=== PATIENT | male | born 1945 | race Caucasian/White ===

== ENCOUNTER 2020-04-30 00:31 | Outpatient (CLI) | payer MEDICARE, OTHER, SELFPAY ==
--- NOTE | 2020-04-30 10:54 | DI.CTLCSR_ITS ---
EXAM: CT CHEST LUNG CANCER SCREEN CLINICAL HISTORY: CURRENT SMOKER,F17.210, SCREENING FOR LUNG CA,BASELINE TECHNIQUE: CT examination of the chest was performed utilizing low-dose lung cancer screening protoc . COMPARISON: No exams were available for comparison FINDINGS: Images obtained through the upper abdomen show unremarkable appearance of visualized portions of the liver and spleen. Visualized portions of kidneys, adrenals, pancreas are unremarkable. Gallbladder and bile ducts are CT normal. There is no mediastinal or hilar adenopathy. Mediastinal vascular structures appear intact by noncon trast criteria. Coronary artery calcifications noted. Tracheobronchial tree appears intact. No pleural effusion or pleural-based mass. The lungs are clear with no significant intrapulmonary nodule identified. There are moderate to severe central lobular pulmonary emphysematous changes. IMPRESSION: Negative LD CT of the chest. Annual screening examinations recommended. Lung RADS Cat 1 - Negative: No nodules and definitely benign nodules RADIATION DOSE DELIVERED: 83.24mGy.cm Total DLP 83.24mGy.cm Total DLP 83.24mGy.cm Total DLP
== END 2020-04-30 00:51 ==
PROVIDERS: PCP Family Medicine; Visit Provider Family Medicine
DX: Z12.2 Encounter for screening for malignant neoplasm of respiratory organs (principal); F17.210 Nicotine dependence, cigarettes, uncomplicated
CPT/HCPCS: G0297